=== PATIENT | male | born 1955 | race Caucasian/White ===

== ENCOUNTER → 2016-04-15 | Outpatient (CLI) | payer BC ==
[~2016-04-15] MED LIST: LISI10TA PO; METF1TAB53 PO; NIAC1TAB59 PO
[2016-04-15 11:08] LABS: ALT/SGPT 34 U/L (12-78); AST/SGOT 16 U/L (15-37); BLOOD UREA NITROGEN 16 mg/dl (7-18); BUN/CREATININE RATIO 13.4 (10-20); CALCIUM 9.3 mg/dl (8.5-10.1); CARBON DIOXIDE 28 mmol/L (21-32); CHLORIDE 106 mmol/L (98-107); GLUCOSE 125 mg/dl (70-99); POTASSIUM 4.6 mmol/L (3.5-5.1); SODIUM 143 mmol/L (136-145)
[2016-04-15 11:20] LABS: ESTIMATED AVERAGE GLUCOSE 128 mg/dl; HA1C FLAG Normal (Normal)
== END | disposition home or self-care (01) ==
LOC: C.LAB 09:15
DX: E11.9 Type 2 diabetes mellitus without complications (principal); E78.5 Hyperlipidemia, unspecified

== ENCOUNTER → 2016-09-30 | Outpatient (CLI) | payer BC ==
[2016-09-30 10:27] LABS: ESTIMATED AVERAGE GLUCOSE 143 mg/dl; HA1C FLAG Normal (Normal)
[2016-09-30 10:44] LABS: CHOLESTEROL/HDL RATIO 3.8
== END | disposition home or self-care (01) ==
LOC: C.LAB 09:23
DX: E11.9 Type 2 diabetes mellitus without complications (principal)

== ENCOUNTER → 2017-04-21 | Outpatient (CLI) | payer OTHER ==
[2017-04-21 09:50] LABS: HEMOGLOBIN A1C 7.1 % (4.5-5.6)
[2017-04-21 10:01] LABS: ALT/SGPT 33 U/L (12-78); AST/SGOT 13 U/L (15-37); BLOOD UREA NITROGEN 21 mg/dl (7-18); CALCIUM 8.9 mg/dl (8.5-10.1); CARBON DIOXIDE 27 mmol/L (21-32); CREATININE 1.11 mg/dl (0.60-1.40); GLUCOSE 177 mg/dl (70-99); POTASSIUM 4.1 mmol/L (3.5-5.1); SODIUM 139 mmol/L (136-145)
[2017-04-21 10:43] LABS: CREATININE RANDOM URINE 77.4 mg/dl
== END | disposition home or self-care (01) ==
LOC: C.LAB 08:35
DX: E11.9 Type 2 diabetes mellitus without complications (principal); I10 Essential (primary) hypertension; E78.5 Hyperlipidemia, unspecified